=== PATIENT | male | born 1935 | race Caucasian/White ===

== ENCOUNTER 2016-09-22 20:24 | Emergency (ER) | payer MEDICARE, OTHER ==
[~2016-09-22 20:24] MED LIST: ACETAMINOPHEN325 MG PO; AMIODARONE HCL200 MG PO; AQUAPHOR396 GM TOP; BENADRYL25 MG PO; CEFDINIR300 MG PO; CERTAGEN1 EACH PO; DUONEB 2.5-0.5M1 AMP INH; FEOSOL325 MG PO; LISINOPRIL 20MG20 MG PO; LOPRESSOR25 MG PO; PEPCID AC20 MG PO; PREDNISONE 10MG10 MG PO; REMERON15 MG PO; SYNTHROID112 MCG PO; VIBRAMYCIN100 MG PO; ZINC-220220 MG PO
== END 2016-09-22 22:24 | disposition expired ==
LOC: FER 20:24
DX: I46.9 Cardiac arrest, cause unspecified (principal); Z66 Do not resuscitate
CPT/HCPCS: 99285